=== PATIENT | male | born 1970 | race Caucasian/White ===

== ENCOUNTER 2023-09-08 07:22 | Emergency (ER) | payer MEDICAID ==
[~2023-09-08] VITALS: Ht 180.3 cm; Wt 52.0 kg
[~2023-09-08 07:22] MED LIST: FERR325T6 PO; FURO40TA5 PO; LACT10SO6 PO; MIDO5TAB4 MT; SPIR100T5 PO
[2023-09-08 07:30] VITALS: O2SAT 100
[2023-09-08 08:20] LABS: CLARITY URINE CLEAR (CLEAR); COLOR URINE YELLOW (YELLOW); GLUCOSE URINE NEGATIVE (NEGATIVE); KETONES URINE TRACE (NEGATIVE); LEUKOCYTE ESTERASE URINE 2+ (NEGATIVE); NITRITE URINE NEGATIVE (NEGATIVE); OCCULT BLOOD URINE NEGATIVE (NEGATIVE); PH URINE 5.5 (4.5-8.0); PROTEIN URINE NEGATIVE (NEGATIVE); SPECIFIC GRAVITY URINE 1.024 (1.005-1.030)
[2023-09-08 08:38] LABS: RBC URINE 0-2 /hpf (0-2); SQUAMOUS EPITHELIAL CELL URINE RARE /lpf (RARE/1+)
[2023-09-08 08:40] LABS: BACTERIA URINE 1+; MUCUS URINE 1+ /lpf (NONE/TRACE); YEAST URINE NONE SEEN
[2023-09-08] MEDS ORDERED: FURO-151 MT (12:28)
[2023-09-08] MEDS ORDERED: SPIR100T5 MT (12:28)
[2023-09-08] MEDS: SPIRONOLACTONE 50MG TABLET PO STA (12:51)
[2023-09-08] MEDS: FUROSEMIDE 40MG TABLET PO ONE (12:51)
[2023-09-08 13:04] VITALS: BP 124/73; PULSE 78; RESP 16; TEMP 98.5
[2023-09-15] MEDS ORDERED: FURO40TA5 PO (08:26)
[2023-09-15] MEDS ORDERED: SPIR100T5 PO (08:26)
== END 2023-09-08 13:14 | disposition home or self-care (01) ==
LOC: ER 08:19
DX: R18.8 Other ascites (principal)
CPT/HCPCS: 81003; 99283; 99284

== ENCOUNTER 2023-09-13 00:43 | Inpatient (IN) | payer MEDICAID ==
[2023-09-13] VITALS (7 sets, daily range): BP systolic 74–123; BP diastolic 40–89; PULSE 78–94; RESP 18–22; TEMP 97–98
[~2023-09-13] VITALS: Ht 175.3 cm; Wt 78.5 kg
[~2023-09-13 00:43] MED LIST changes: +FURO-151 MT; +SPIR100T5 MT
[2023-09-13 01:23] LABS: CHLORIDE 107 mEq/L (98-107); POTASSIUM 4.1 mEq/L (3.5-5.1); SODIUM 136 mEq/L (136-145)
[2023-09-13 01:24] LABS: CARBON DIOXIDE 22 mEq/L (21-32)
[2023-09-13 01:28] LABS: HEMATOCRIT. 29.8 % (42.0-52.0); HEMOGLOBIN. 9.4 g/dL (14.0-18.0); MEAN CORPUSCULAR HEMOGLOBIN 28.4 pg (28.0-32.0); MEAN CORPUSCULAR HGB CONC 31.5 g/dL (31.0-37.0); MEAN CORPUSCULAR VOLUME 90.1 fL (80.0-94.0); MEAN PLATELET VOLUME 9.5 fl (7.4-10.4); PLATELET 65 x1000/uL (130-400); RED BLOOD CELL COUNT 3.31 mill/uL (4.7-6.1); RED CELL DISTRIBUTION WIDTH 18.5 % (11.6-14.6); WHITE BLOOD COUNT 2.9 x1000/uL (4.5-11.0)
[2023-09-13 01:29] LABS: CREATININE 0.9 mg/dL (0.6-1.3); GLUCOSE 165 mg/dL (70-105); UREA NITROGEN BLOOD 11 mg/dL (9-23)
[2023-09-13 01:31] LABS: DIFFERENTIAL COMMENT 1
[2023-09-13 01:34] LABS: TROPONIN I HIGH SENSITIVITY < 4 ng/L (3.0-53)
[2023-09-13 01:50] LABS: PLATELET ESTIMATE MARKEDLY DECREASED
[2023-09-13 01:51] LABS: GIANT PLATELETS FEW; OVALOCYTES 1+; TEAR DROP CELLS 1+
[2023-09-13 04:25] LABS: INR 1.1; PROTHROMBIN TIME 12.6 sec (9.6-11.0)
[2023-09-13] MEDS ORDERED: DOCUSATE SODIUM 100MG CAPSULE PO PRN (07:45)
[2023-09-13] MEDS ORDERED: IPRATROPIUM/ALBUTEROL 0.5-3(2.5)MG/3ML NEB HHN PRN (07:45)
[2023-09-13] MEDS ORDERED: CLONIDINE 0.1MG TABLET PO PRN (07:45)
[2023-09-13] MEDS ORDERED: GUAIFENESIN 200MG/10ML SUGAR FREE UDC PO PRN (07:45)
[2023-09-13] MEDS ORDERED: MAGNESIUM/ALUMINUM HYDROXIDE/SIMETHICONE 30ML UDC PO PRN (07:45)
[2023-09-13] MEDS: PANTOPRAZOLE SODIUM 40 MG/VIAL IV SCH (09:57)
[2023-09-13 10:28] LABS: CARBON DIOXIDE 22 mEq/L (21-32); CHLORIDE 108 mEq/L (98-107); POTASSIUM 4.1 mEq/L (3.5-5.1); SODIUM 136 mEq/L (136-145)
[2023-09-13 10:29] LABS: CALCIUM 7.8 mg/dL (8.7-10.4)
[2023-09-13 10:33] LABS: IRON 37 ug/dL (65-175)
[2023-09-13 10:34] LABS: CREATININE 0.7 mg/dL (0.6-1.3); GLUCOSE 94 mg/dL (70-105); UREA NITROGEN BLOOD 9 mg/dL (9-23)
[2023-09-13 10:35] LABS: AMMONIA 33 uMol/L (<32)
[2023-09-13 10:36] LABS: ALANINE AMINOTRANSFERASE 30 IU/L (10-49); ALBUMIN 2.4 g/dL (3.2-4.8); ASPARTATE AMINOTRANSFERASE 46 IU/L (<34); BILIRUBIN DIRECT 0.8 mg/dL (<=3.0); BILIRUBIN TOTAL 1.6 mg/dL (0.1-1.0); PROTEIN TOTAL 6.4 g/dL (6.0-8.3); TOTAL IRON BINDING CAPACITY 308 ug/dl (250-425)
[2023-09-13 12:01] LABS: FERRITIN 29 ng/mL (22-322)
[2023-09-13 12:02] LABS: FOLIC ACID (FOLATE) SERUM 14.79 ng/mL (>5.38); VITAMIN B12 SERUM 920 pg/mL (211-911)
[2023-09-13 12:12] LABS: HEPATITIS B SURFACE ANTIGEN NEGATIVE (Negative)
[2023-09-13 12:33] LABS: HEPATITIS A AB IGM NEGATIVE (Negative); HEPATITIS B CORE AB IGM NEGATIVE (Negative)
[2023-09-13 12:34] LABS: HEPATITIS C AB REACTIVE (Pos) (Negative)
[2023-09-13] MEDS: ONDANSETRON HCL 4MG/2ML INJ IV PRN (23:01)
[2023-09-14] VITALS (12 sets, daily range): BP systolic 96–126; BP diastolic 71–94; PULSE 74–93; RESP 18–25; TEMP 96.9–98.4
[2023-09-14] LABS: BG BASE EXCESS -3.2 mmol/L (-2.0-2.0); BG CARBOXYHEMOGLOBIN 0.2 % (0.5-1.5); BG DEOXYHEMOGLOBIN 0.2 % (0.0-5.0); BG FRACTION INSPIRED OXYGEN 100; BG HCO3 ACT 20.2 mmol/L (22.0-26.0); BG METHEMOGLOBIN 0.6 % (0.0-1.5); BG OXYGEN SATURATION 99.8 % (92.0-98.5); BG PCO2 30.4 mmHg (35.0-45.0); BG PH 7.441 (7.350-7.450); BG PO2 441.6 mmHg (75.0-100.0); BG SAMPLE SITE LEFT RADIAL; BG TOTAL HEMOGLOBIN 9.5 g/dL (12.0-18.0); BG VENT MODE MASK - NRB
[2023-09-14 05:00] LABS: CHLORIDE 109 mEq/L (98-107); POTASSIUM 4.2 mEq/L (3.5-5.1); SODIUM 134 mEq/L (136-145)
[2023-09-14 05:01] LABS: CALCIUM 7.7 mg/dL (8.7-10.4); CARBON DIOXIDE 20 mEq/L (21-32)
[2023-09-14 05:06] LABS: CREATININE 0.7 mg/dL (0.6-1.3); GLUCOSE 90 mg/dL (70-105); TRIGLYCERIDE 42 mg/dL (0-150); UREA NITROGEN BLOOD 10 mg/dL (9-23)
[2023-09-14 05:07] LABS: AMMONIA 53 uMol/L (<32); LDL CHOLESTEROL 41 mg/dL (5-100)
[2023-09-14 05:08] LABS: ALBUMIN 2.2 g/dL (3.2-4.8); CHOLESTEROL 82 mg/dL (<200); HDL CHOLESTEROL 31 mg/dL (>55)
[2023-09-14 05:11] LABS: T4 FREE 0.97 ng/dL (0.89-1.76); THYROID STIMULATING HORMONE 6.54 uIU/mL (0.55-4.78)
[2023-09-14 05:45] LABS: BASOPHILS % 0.7 % (0.0-2.0); EOSINOPHILS % 3.8 % (0.0-5.0); HEMATOCRIT 27.9 % (42.0-52.0); HEMATOCRIT. 27.9 % (42.0-52.0); HEMOGLOBIN 8.7 g/dL (14.0-18.0); HEMOGLOBIN. 8.7 g/dL (14.0-18.0); LYMPHOCYTES % 14.8 % (20.0-50.0); MEAN CORPUSCULAR HEMOGLOBIN 27.9 pg (28.0-32.0); MEAN CORPUSCULAR HGB CONC 31.2 g/dL (31.0-37.0); MEAN CORPUSCULAR VOLUME 89.4 fL (80.0-94.0); MEAN PLATELET VOLUME 9.8 fl (7.4-10.4); MONOCYTES % 14.9 % (2.0-8.0); NEUTROPHILS % 65.8 % (40.0-76.0); PLATELET 57 x1000/uL (130-400); RED BLOOD CELL COUNT 3.12 mill/uL (4.7-6.1); RED CELL DISTRIBUTION WIDTH 18.5 % (11.6-14.6); WHITE BLOOD COUNT 2.2 x1000/uL (4.5-11.0)
[2023-09-14 05:49] LABS: INR 1.2; PROTHROMBIN TIME 13.4 sec (9.6-11.0)
[2023-09-14] MEDS: ALBUMIN HUMAN 25GM/100ML (25%) IV PRN (08:12)
[2023-09-14] MEDS: RIFAXIMIN 550 MG TABLET PO SCH (09:43)
[2023-09-14] MEDS: LACTULOSE 20G/30ML UDC PO SCH (14:05)
[2023-09-14 15:34] LABS: BODY FLUID MONOCYTES 2 %
[2023-09-14 15:35] LABS: BODY FLUID RBC 211 /cu mm (0-2000); BODY FLUID WBC 140 /cu mm (0-200)
[2023-09-14] MEDS: ALBUMIN HUMAN 25GM/100ML (25%) IV NR (20:29)
[2023-09-15] VITALS (7 sets, daily range): BP systolic 104–120; BP diastolic 79–89; PULSE 74–91; RESP 18–24; TEMP 97.2–97.7; O2SAT 100
[2023-09-15 06:19] LABS: AMMONIA 31 uMol/L (<32)
[2023-09-15 06:32] LABS: HEMATOCRIT 26.8 % (42.0-52.0); HEMOGLOBIN 8.5 g/dL (14.0-18.0); MEAN CORPUSCULAR HEMOGLOBIN 28.4 pg (28.0-32.0); MEAN CORPUSCULAR HGB CONC 31.8 g/dL (31.0-37.0); MEAN CORPUSCULAR VOLUME 89.2 fL (80.0-94.0); PLATELET 51 x1000/uL (130-400); RED BLOOD CELL COUNT 3.01 mill/uL (4.7-6.1); RED CELL DISTRIBUTION WIDTH 18.2 % (11.6-14.6)
[2023-09-15 06:40] LABS: WHITE BLOOD COUNT 1.7 x1000/uL (4.5-11.0)
[2023-09-15 06:51] LABS: CHLORIDE 110 mEq/L (98-107); POTASSIUM 3.8 mEq/L (3.5-5.1); SODIUM 138 mEq/L (136-145)
[2023-09-15 06:52] LABS: CALCIUM 7.9 mg/dL (8.7-10.4); CARBON DIOXIDE 21 mEq/L (21-32)
[2023-09-15 06:57] LABS: CREATININE 0.8 mg/dL (0.6-1.3); GLUCOSE 83 mg/dL (70-105); UREA NITROGEN BLOOD 8 mg/dL (9-23)
[2023-09-15 07:00] LABS: PHOSPHORUS 3.9 mg/dL (2.5-4.9)
[2023-09-15] MEDS ORDERED: SPIR100T5 PO (08:26)
[2023-09-15] MEDS ORDERED: FURO40TA5 PO (08:26)
== END 2023-09-15 17:45 | disposition home or self-care (01) ==
LOC: ER 00:43 → 6WST 04:21 → ER 05:57 → 6WST 07:04 → 5EST 23:55
PROVIDERS: ADMIT Internal Medicine; ATTEND Internal Medicine
PROC: 0W9G3ZZ Drainage of Peritoneal Cavity, Percutaneous Approach (ICD-10-PCS; principal; 2023-09-14)
DX: K74.60 Unspecified cirrhosis of liver (principal); K72.90 Hepatic failure, unspecified without coma; D72.10 Eosinophilia, unspecified; R18.8 Other ascites; E88.09 Other disorders of plasma-protein metabolism, not elsewhere classified; B19.20 Unspecified viral hepatitis C without hepatic coma; D69.59 Other secondary thrombocytopenia; D64.89 Other specified anemias; D72.819 Decreased white blood cell count, unspecified; F10.21 Alcohol dependence, in remission; Z79.899 Other long term (current) drug therapy; Z91.199 Patient's noncompliance with other medical treatment and regimen due to unspecified reason
CPT/HCPCS: 36415; 36600; 49083; 71045; 76705; 80048; 80053; 80061; 82040; 82140; 82248; 82270; 82375; 82607; 82728; 82746; 82805; 82962; 83540; 83550; 83615; 83735; 84100; 84439; 84443; 84484; 85025; 85027; 86705; 86709; 87340; 93005; 93970; 99285; C9113; J2405; P9047

== ENCOUNTER 2024-09-11 13:47 | Inpatient (IN) | payer MEDICAID ==
[~2024-09-11] VITALS: Ht 175.3 cm; Wt 60.8 kg
[~2024-09-11 13:47] MED LIST changes: -FURO-151 MT; +LACT-394 PO; -LACT10SO6 PO; -SPIR100T5 MT
[2024-09-11] MEDS: SODIUM CHLORIDE 0.9% 1,000 ML IV ONE ×2 (14:35→20:15)
[2024-09-11 14:43] LABS: HEMOGLOBIN. 11.8 g/dL (14.0-18.0); MEAN CORPUSCULAR HEMOGLOBIN 33.6 pg (28.0-32.0); MEAN CORPUSCULAR HGB CONC 34.7 g/dL (31.0-37.0); MEAN CORPUSCULAR VOLUME 96.9 fL (80.0-94.0); RED BLOOD CELL COUNT 3.51 mill/uL (4.7-6.1); RED CELL DISTRIBUTION WIDTH 15.6 % (11.6-14.6); WHITE BLOOD COUNT 2.2 x1000/uL (4.5-11.0)
[2024-09-11 14:45] LABS: CHLORIDE 102 mEq/L (98-107); POTASSIUM 4.6 mEq/L (3.5-5.1); SODIUM 134 mEq/L (136-145)
[2024-09-11 14:46] LABS: CARBON DIOXIDE 21 mEq/L (21-32)
[2024-09-11 14:47] LABS: CALCIUM 9.1 mg/dL (8.7-10.4); INR 1.2; PROTHROMBIN TIME 12.9 sec (9.6-11.0)
[2024-09-11 14:51] LABS: GLUCOSE 136 mg/dL (70-105)
[2024-09-11 14:52] LABS: UREA NITROGEN BLOOD 36 mg/dL (9-23)
[2024-09-11 14:53] LABS: ALANINE AMINOTRANSFERASE 72 IU/L (10-49); ALBUMIN 3.5 g/dL (3.2-4.8); ASPARTATE AMINOTRANSFERASE 78 IU/L (<34); BILIRUBIN DIRECT 0.8 mg/dL (<=3.0)
[2024-09-11 14:54] LABS: BILIRUBIN TOTAL 1.9 mg/dL (0.1-1.0); PROTEIN TOTAL 7.4 g/dL (6.0-8.3)
[2024-09-11 14:56] LABS: CREATININE 2.5 mg/dL (0.6-1.3)
[2024-09-11 14:58] LABS: DIFFERENTIAL COMMENT 1; PLATELET 45 x1000/uL (130-400)
[2024-09-11] MEDS: SODIUM CHLORIDE 0.9% (SEPSIS BOLUS) IV ONE (15:04)
[2024-09-11] MEDS: PIPERACILLIN/TAZO 3.375G/50ML 50 ML IV ONE (15:26)
[2024-09-11 15:27] LABS: PLATELET ESTIMATE MARKEDLY DECREASED
[2024-09-11 16:07] LABS: ETHANOL BLOOD < 10 mg/dL (<10)
[2024-09-11 16:12] LABS: TROPONIN I HIGH SENSITIVITY < 4 ng/L (3.0-53)
[2024-09-11 16:22] LABS: AMMONIA 43 uMol/L (<32)
[2024-09-11 16:26] LABS: INR 2.3; PARTIAL THROMBOPLASTIN TIME 63.8 sec (23.4-31.0); PROTHROMBIN TIME 22.8 sec (9.6-11.0)
[2024-09-11] MEDS: VANCOMYCIN 1G PREMIX 200 ML IV ONE (16:34)
[2024-09-11] MEDS ORDERED: DOCUSATE SODIUM 100MG CAPSULE PO PRN (17:15)
[2024-09-11] MEDS ORDERED: CLONIDINE 0.1MG TABLET PO PRN (17:15)
[2024-09-11] MEDS ORDERED: GUAIFENESIN 200MG/10ML SUGAR FREE UDC PO PRN (17:15)
[2024-09-11] MEDS ORDERED: ACETAMINOPHEN 325MG TABLET PO PRN (17:15)
[2024-09-11] MEDS ORDERED: MAGNESIUM/ALUMINUM HYDROXIDE/SIMETHICONE 30ML UDC PO PRN (17:15)
[2024-09-11] MEDS ORDERED: ONDANSETRON HCL 4MG/2ML INJ IV PRN (17:15)
[2024-09-11] MEDS ORDERED: IPRATROPIUM/ALBUTEROL 0.5-3(2.5)MG/3ML NEB HHN PRN (17:34)
[2024-09-11 18:36] LABS: IRON 31 ug/dL (65-175)
[2024-09-11 18:38] LABS: LACTATE DEHYDROGENASE 58 IU/L (120-246)
[2024-09-11 18:39] LABS: PHOSPHORUS 1.3 mg/dL (2.5-4.9); TOTAL IRON BINDING CAPACITY 197 ug/dl (250-425)
[2024-09-11 18:42] LABS: FERRITIN 160 ng/mL (22-322); FOLIC ACID (FOLATE) SERUM > 20.00 ng/mL (>5.38)
[2024-09-11 18:43] LABS: VITAMIN B12 SERUM 983 pg/mL (211-911)
[2024-09-11] MEDS ORDERED: POTASSIUM PHOSPHATE 30 MMOL in DEXT 5% WATER 490 ML IV ONE (19:30)
[2024-09-11 20:00] VITALS: BP 93/73; PULSE 70; RESP 18; TEMP 36.1; O2SAT 100
[2024-09-11] MEDS: TRAMADOL 50MG TABLET PO SCH (20:07)
[2024-09-11 20:08] LABS: BG BASE EXCESS -2.9 mmol/L (-2.0-3.0); BG CARBOXYHEMOGLOBIN 0.3 % (0.5-1.5); BG DEOXYHEMOGLOBIN 1.7 % (0.0-5.0); BG FRACTION INSPIRED OXYGEN 21; BG HCO3 ACT 18.1 mmol/L (21.0-28.0); BG METHEMOGLOBIN 0.3 % (0.5-1.5); BG OXYGEN SATURATION 98.3 % (94.0-98.0); BG OXYHEMOGLOBIN 97.7 % (94.0-98.0); BG PH 7.534 (7.350-7.450); BG PO2 109.6 mmHg (83.0-108.0); BG SAMPLE SITE RIGHT RADIAL; BG TOTAL HEMOGLOBIN 11.6 g/dL (13.5-17.5); BG VENT MODE ROOM AIR
[2024-09-11] MEDS: MIDODRINE HCL 5MG TABLET PO SCH (20:08)
[2024-09-11] MEDS: LACTULOSE 20G/30ML UDC PO SCH (20:08)
[2024-09-11] MEDS: PANTOPRAZOLE SODIUM 40 MG/VIAL IV SCH (20:15)
[2024-09-11] MEDS: MAGNESIUM 4 G PREMIX 100 ML IV SCH (21:12)
[2024-09-11 21:58] LABS: CLARITY URINE CLEAR (CLEAR); COLOR URINE YELLOW (YELLOW); GLUCOSE URINE NEGATIVE (NEGATIVE); KETONES URINE NEGATIVE (NEGATIVE); LEUKOCYTE ESTERASE URINE NEGATIVE (NEGATIVE); NITRITE URINE NEGATIVE (NEGATIVE); OCCULT BLOOD URINE NEGATIVE (NEGATIVE); PH URINE 6.5 (4.5-8.0); PROTEIN URINE NEGATIVE (NEGATIVE); SPECIFIC GRAVITY URINE 1.017 (1.005-1.030); UROBILINOGEN URINE 0.2 E.U./dL (0.2-1.0)
[2024-09-11 22:21] LABS: *AMPHETAMINES SCREEN URINE NEGATIVE (NEGATIVE); *BARBITURATES SCREEN URINE NEGATIVE (NEGATIVE); *BENZODIAZEPINES SCREEN URINE NEGATIVE (NEGATIVE); *COCAINE SCREEN URINE NEGATIVE (NEGATIVE); CANNABINOID URINE SCREEN NEGATIVE (NEGATIVE); ECSTASY MDMA SCREEN URINE NEGATIVE (NEGATIVE); METHADONE URINE SCREEN NEGATIVE (NEGATIVE); OPIATES URINE SCREEN NEGATIVE (NEGATIVE); PHENCYCLIDINE URINE SCREEN NEGATIVE (NEGATIVE)
[2024-09-11] MEDS: PIPERACILLIN/TAZO 3.375G/50ML 50 ML IV SCH (22:43)
[2024-09-11 23:22] LABS: CREATINE KINASE 64 IU/L (46-171)
[2024-09-11 23:25] LABS: TROPONIN I HIGH SENSITIVITY < 4 ng/L (3.0-53)
[2024-09-12] VITALS: BP 109/80; PULSE 71; RESP 18; TEMP 36.1; O2SAT 100
[2024-09-12] MEDS: SODIUM PHOSPHATE 30 MMOL in DEXT 5% WATER 490 ML IV SCH (01:30)
[2024-09-12 04:00] VITALS: BP 102/75; PULSE 75; RESP 18; TEMP 36.7; O2SAT 100
[2024-09-12 05:59] LABS: BASOPHILS % 0.5 % (0.0-2.0); EOSINOPHILS % 3.2 % (0.0-5.0); HEMATOCRIT. 34.3 % (42.0-52.0); HEMOGLOBIN. 11.7 g/dL (14.0-18.0); LYMPHOCYTES % 7.7 % (20.0-50.0); MEAN CORPUSCULAR HEMOGLOBIN 33.2 pg (28.0-32.0); MEAN CORPUSCULAR HGB CONC 34.2 g/dL (31.0-37.0); MEAN PLATELET VOLUME 9.6 fl (7.4-10.4); MONOCYTES % 11.6 % (2.0-8.0); RED BLOOD CELL COUNT 3.54 mill/uL (4.7-6.1); RED CELL DISTRIBUTION WIDTH 15.2 % (11.6-14.6); WHITE BLOOD COUNT 2.2 x1000/uL (4.5-11.0)
[2024-09-12 06:08] LABS: POTASSIUM 4.2 mEq/L (3.5-5.1)
[2024-09-12 06:09] LABS: CALCIUM 9.1 mg/dL (8.7-10.4)
[2024-09-12 06:14] LABS: CREATININE 2.2 mg/dL (0.6-1.3)
[2024-09-12 06:15] LABS: CREATINE KINASE 62 IU/L (46-171)
[2024-09-12 06:18] LABS: T4 FREE 1.26 ng/dL (0.89-1.76); THYROID STIMULATING HORMONE 3.33 uIU/mL (0.55-4.78)
[2024-09-12 06:28] LABS: TROPONIN I HIGH SENSITIVITY < 4 ng/L (3.0-53)
[2024-09-12 06:44] LABS: DIFFERENTIAL COMMENT 1; PLATELET 40 x1000/uL (130-400)
[2024-09-12 08:00] VITALS: BP 110/77; PULSE 68; RESP 18; TEMP 36.5; O2SAT 99
[2024-09-12] MEDS ORDERED: NON FORMULARY MED XX SCH (08:00)
[2024-09-12 08:57] LABS: PHOSPHORUS 5.1 mg/dL (2.5-4.9)
[2024-09-12] MEDS: FOLIC ACID 1MG TABLET PO SCH (09:08)
[2024-09-12] MEDS: PIPERACILLIN/TAZO 3.375G/50ML IV SCH (09:32)
[2024-09-12] MEDS: IRON SUCROSE COMPLEX 100 MG/5 ML ML IV SCH (09:32)
[2024-09-12] MEDS ORDERED: VANCOMYCIN 500MG PREMIX 100 ML IV SCH (10:00)
[2024-09-12] MEDS ORDERED: LIDOCAINE HCL 1% 10 MG/ML 10ML VIAL ONE (10:36)
[2024-09-12] MEDS ORDERED: SODIUM BICARBONATE 4.2% 2.5MEQ/5ML VIAL IV ONE (10:36)
[2024-09-12] MEDS ORDERED: MORPHINE SULFATE 4 MG/ML INJ (FOR IV/IM USE) IV PRN (12:15)
[2024-09-12] MEDS ORDERED: NALOXONE HCL 0.4MG/ML VIAL IV PRN (12:30)
[2024-09-12] MEDS: PHYTONADIONE 10MG/ML INJ SUBCUT SCH (14:35)
[2024-09-12 16:24] LABS: PROTEIN BODY FLUID 2.4 gm/dL
[2024-09-12 16:37] LABS: ALANINE AMINOTRANSFERASE 66 IU/L (10-49); ASPARTATE AMINOTRANSFERASE 69 IU/L (<34); BILIRUBIN TOTAL 2.2 mg/dL (0.1-1.0); PROTEIN TOTAL 6.5 g/dL (6.0-8.3)
[2024-09-12 16:38] LABS: AMMONIA 58 uMol/L (<32)
[2024-09-12] MEDS: METRONIDAZOLE 500 MG PREMIX 100 ML IV SCH (17:13)
[2024-09-12] MEDS: ALBUMIN HUMAN 25GM/100ML (25%) IV SCH (17:35)
[2024-09-12] MEDS: CEFEPIME 2GM/100ML 100 ML IV SCH (17:36)
[2024-09-12 18:00] VITALS: BP 114/80; PULSE 67; RESP 18; TEMP 36.5; O2SAT 99
[2024-09-12] MEDS: VANCOMYCIN 750MG PMX (XELLIA) 150 ML IV SCH (18:43)
[2024-09-12 18:44] LABS: SODIUM URINE RANDOM 53 mEq/L
[2024-09-12 19:06] LABS: OSMOLALITY URINE 640 mOsm/kg (500-850)
[2024-09-12 20:00] VITALS: BP 86/55; PULSE 65; RESP 18; TEMP 36.4; O2SAT 100
[2024-09-12 23:22] LABS: BODY FLUID MONOCYTES 13 %; BODY FLUID RBC 73 /cu mm (0-2000); BODY FLUID WBC 54 /cu mm (0-200)
[2024-09-13] VITALS: BP 97/63; PULSE 61; RESP 19; TEMP 36.3; O2SAT 95
[2024-09-13 04:00] VITALS: BP 88/54; PULSE 60; RESP 20; TEMP 36.2; O2SAT 94
[2024-09-13] MEDS ORDERED: DIATR MEGLU/DIATRIZOATE SOLN 30ML PO SCH (05:30)
[2024-09-13 08:00] VITALS: BP 103/64; PULSE 56; RESP 18; TEMP 36.7; O2SAT 97
[2024-09-13 10:00] LABS: BASOPHILS % 0.8 % (0.0-2.0); EOSINOPHILS % 2.6 % (0.0-5.0); HEMOGLOBIN. 12.4 g/dL (14.0-18.0); INR 1.3; LYMPHOCYTES % 7.4 % (20.0-50.0); MEAN CORPUSCULAR HGB CONC 33.4 g/dL (31.0-37.0); MEAN PLATELET VOLUME 9.5 fl (7.4-10.4); MONOCYTES % 13.1 % (2.0-8.0); NEUTROPHILS % 76.1 % (40.0-76.0); PROTHROMBIN TIME 13.2 sec (9.6-11.0); RED BLOOD CELL COUNT 3.74 mill/uL (4.7-6.1); RED CELL DISTRIBUTION WIDTH 15.4 % (11.6-14.6); WHITE BLOOD COUNT 3.7 x1000/uL (4.5-11.0)
[2024-09-13 10:06] LABS: POTASSIUM 4.4 mEq/L (3.5-5.1)
[2024-09-13 10:11] LABS: DIFFERENTIAL COMMENT 1
[2024-09-13] MEDS: DIATR MEGLU/DIATRIZOATE SOLN 30ML PO SCH (11:13)
[2024-09-13 11:16] LABS: PLATELET 41 x1000/uL (130-400)
[2024-09-13 12:00] VITALS: BP 98/65; PULSE 55; RESP 18; TEMP 36.6; O2SAT 100
[2024-09-13] MEDS: CITRIC ACID/SODIUM CITRATE SOLN 30ML UDC PO SCH (13:00)
[2024-09-13 14:09] LABS: HEMATOCRIT 35.4 % (42.0-52.0); HEMOGLOBIN 12.3 g/dL (14.0-18.0); MEAN CORPUSCULAR HEMOGLOBIN 33.5 pg (28.0-32.0); MEAN CORPUSCULAR HGB CONC 34.8 g/dL (31.0-37.0); MEAN CORPUSCULAR VOLUME 96.2 fL (80.0-94.0); RED BLOOD CELL COUNT 3.68 mill/uL (4.7-6.1); RED CELL DISTRIBUTION WIDTH 14.8 % (11.6-14.6); WHITE BLOOD COUNT 2.9 x1000/uL (4.5-11.0)
[2024-09-13 14:12] LABS: PLATELET 39 x1000/uL (130-400)
[2024-09-13 14:18] LABS: POTASSIUM 3.7 mEq/L (3.5-5.1)
[2024-09-13 14:19] LABS: CALCIUM 9.5 mg/dL (8.7-10.4)
[2024-09-13 14:24] LABS: CREATININE 2.1 mg/dL (0.6-1.3)
[2024-09-13 14:27] LABS: ALANINE AMINOTRANSFERASE 68 IU/L (10-49); ALBUMIN 3.8 g/dL (3.2-4.8); ASPARTATE AMINOTRANSFERASE 72 IU/L (<34); BILIRUBIN DIRECT 1.2 mg/dL (<=3.0); BILIRUBIN TOTAL 2.3 mg/dL (0.1-1.0); PROTEIN TOTAL 7.4 g/dL (6.0-8.3)
[2024-09-13 14:28] LABS: AMMONIA 26 uMol/L (<32)
[2024-09-13 14:44] LABS: HEPATITIS B SURFACE ANTIGEN NEGATIVE (Negative)
[2024-09-13 15:00] LABS: HEPATITIS A AB IGM NEGATIVE (Negative)
[2024-09-13 15:01] LABS: HEPATITIS B CORE AB IGM NEGATIVE (Negative)
[2024-09-13 15:33] LABS: HEPATITIS C AB REACTIVE (Pos) (Negative)
[2024-09-13 16:00] VITALS: BP 105/68; PULSE 60; RESP 18; TEMP 36.6; O2SAT 100
[2024-09-13 17:37] VITALS: BP 105/68; PULSE 60; TEMP 97.9; O2SAT 98
== END 2024-09-13 18:15 | disposition home or self-care (01) | DRG 720 ==
LOC: ER 13:47 → EDBEDREQ 15:01 → EDBEDREQSVC 16:29 → EDBEDREQ 16:29 → 8WST 17:21
PROVIDERS: ADMIT Hospitalist; ATTEND Hospitalist
PROC: 0W9G3ZZ Drainage of Peritoneal Cavity, Percutaneous Approach (ICD-10-PCS; principal; 2024-09-12)
DX: A41.9 Sepsis, unspecified organism (principal); N17.0 Acute kidney failure with tubular necrosis; K76.7 Hepatorenal syndrome; I81 Portal vein thrombosis; G93.40 Encephalopathy, unspecified; D61.818 Other pancytopenia; R18.8 Other ascites; J18.9 Pneumonia, unspecified organism; Z20.822 Contact with and (suspected) exposure to COVID-19; D68.9 Coagulation defect, unspecified; D63.8 Anemia in other chronic diseases classified elsewhere; E87.1 Hypo-osmolality and hyponatremia; E83.39 Other disorders of phosphorus metabolism; N18.9 Chronic kidney disease, unspecified; B19.20 Unspecified viral hepatitis C without hepatic coma; D50.9 Iron deficiency anemia, unspecified; M13.88 Other specified arthritis, other site; Y90.9 Presence of alcohol in blood, level not specified; E80.6 Other disorders of bilirubin metabolism; F10.21 Alcohol dependence, in remission; K74.60 Unspecified cirrhosis of liver; K82.8 Other specified diseases of gallbladder; Z55.6 Problems related to health literacy; Z85.05 Personal history of malignant neoplasm of liver; Z86.73 Personal history of transient ischemic attack (TIA), and cerebral infarction without residual deficits; Z92.21 Personal history of antineoplastic chemotherapy; Z92.3 Personal history of irradiation
CPT/HCPCS: 36415; 36600; 49083; 71045; 74177; 76705; 76770; 80048; 80061; 80076; 80202; 80305; 80320; 81003; 82040; 82105; 82140; 82270; 82375; 82550; 82607; 82728; 82746; 82805; 83540; 83550; 83605; 83615; 83735; 83880; 83930; 83935; 83986; 84100; 84145; 84300; 84439; 84443; 84484; 85025; 85027; 85044; 86705; 86709; 86850; 86900; 87340; 87426; 93005; 93970; 94640; 96361; 96365; 96367; 97162; 97166; 97530; 97535; 99291; J0692; J2003; J2470; J2543; J3370; J3430; J3475; J3490; J7030; J7060; P9047; Q9963; G0480

== ENCOUNTER 2024-10-19 19:36 | Inpatient (IN) | payer MEDICAID ==
[~2024-10-19] VITALS: Ht 170.2 cm; Wt 54.2 kg
[~2024-10-19 19:36] MED LIST changes: -SPIR100T5 PO
[2024-10-19] MEDS ORDERED: MORPHINE SULFATE 4 MG/ML INJ (FOR IV/IM USE) IV ONE (20:00)
[2024-10-19] MEDS ORDERED: ONDANSETRON HCL 4MG/2ML INJ IV ONE (20:00)
[2024-10-19 20:12] LABS: HEMATOCRIT. 36.4 % (42.0-52.0); HEMOGLOBIN. 12.6 g/dL (14.0-18.0); MEAN PLATELET VOLUME 7.9 fl (7.4-10.4); PLATELET 97 x1000/uL (130-400); RED BLOOD CELL COUNT 3.80 mill/uL (4.7-6.1); RED CELL DISTRIBUTION WIDTH 15.0 % (11.6-14.6)
[2024-10-19 20:21] LABS: INR 1.1
[2024-10-19 20:27] LABS: LYMPHOCYTES % MANUAL 6.0 % (20.0-50.0); MONOCYTES % MANUAL 9.0 % (2.0-8.0); NEUTROPHILS % MANUAL 85.0 % (45.0-75.0); PLATELET ESTIMATE SLIGHTLY DECREASED
[2024-10-19 20:36] LABS: CREATININE 1.5 mg/dL (0.6-1.3); UREA NITROGEN BLOOD 47 mg/dL (9-23)
[2024-10-19 20:38] LABS: TROPONIN I HIGH SENSITIVITY < 4 ng/L (3.0-53)
[2024-10-19 21:25] LABS: ASPARTATE AMINOTRANSFERASE 102 IU/L (<34)
[2024-10-19 21:26] LABS: BILIRUBIN DIRECT 0.7 mg/dL (<=3.0); BILIRUBIN TOTAL 1.2 mg/dL (0.1-1.0); PROTEIN TOTAL 6.7 g/dL (6.0-8.3)
[2024-10-19] MEDS: MORPHINE SULFATE 4 MG/ML INJ (FOR IV/IM USE) IV NR (22:13)
[2024-10-19] MEDS: ONDANSETRON HCL 4MG/2ML INJ IV NR (22:13)
[2024-10-19] MEDS ORDERED: GUAIFENESIN 200MG/10ML SUGAR FREE UDC PO PRN (23:45)
[2024-10-19] MEDS ORDERED: ONDANSETRON HCL 4MG/2ML INJ IV PRN (23:45)
[2024-10-20] VITALS: BP 102/78; PULSE 79; RESP 20; TEMP 36.4; O2SAT 100
[2024-10-20 00:47] VITALS: BP 102/78; PULSE 79; RESP 20; TEMP 36.418
[2024-10-20 02:41] LABS: FOLIC ACID (FOLATE) SERUM 17.16 ng/mL (>5.38); VITAMIN B12 SERUM 1208 pg/mL (211-911)
[2024-10-20 04:00] VITALS: BP 96/69; PULSE 80; RESP 19; TEMP 36.5; O2SAT 99
[2024-10-20] MEDS ORDERED: CEFEPIME 1GM IN DEXT 5% 50ML IV SCH (05:15)
[2024-10-20] MEDS: CEFEPIME 2,000MG in DEXT 5% WATER 100ML IV SCH (05:56)
[2024-10-20 07:57] LABS: CLARITY URINE CLOUDY (CLEAR); COLOR URINE DARK YELLOW (YELLOW); GLUCOSE URINE NEGATIVE (NEGATIVE); KETONES URINE TRACE (NEGATIVE); LEUKOCYTE ESTERASE URINE 2+ (NEGATIVE); NITRITE URINE NEGATIVE (NEGATIVE); OCCULT BLOOD URINE TRACE (NEGATIVE); PH URINE 5.5 (4.5-8.0); PROTEIN URINE NEGATIVE (NEGATIVE); SPECIFIC GRAVITY URINE 1.019 (1.005-1.030); UROBILINOGEN URINE 1.0 E.U./dL (0.2-1.0)
[2024-10-20 08:00] VITALS: BP 91/61; PULSE 72; RESP 16; TEMP 36.3; O2SAT 99
[2024-10-20 08:57] LABS: HEMATOCRIT. 35.9 % (42.0-52.0); HEMOGLOBIN. 12.3 g/dL (14.0-18.0); MEAN PLATELET VOLUME 8.8 fl (7.4-10.4); PLATELET 84 x1000/uL (130-400); RED BLOOD CELL COUNT 3.74 mill/uL (4.7-6.1); RED CELL DISTRIBUTION WIDTH 15.1 % (11.6-14.6)
[2024-10-20 09:06] LABS: SQUAMOUS EPITHELIAL CELL URINE 1+ /lpf (RARE/1+); WBC URINE 15-25 /hpf (0-2)
[2024-10-20 09:07] LABS: BACTERIA URINE 3+; RBC URINE 0-2 /hpf (0-2); YEAST URINE NONE SEEN
[2024-10-20 09:19] LABS: TRIGLYCERIDE 62.0 mg/dL (0-150)
[2024-10-20 09:20] LABS: LDL CHOLESTEROL 77.0 mg/dL (5-100); T4 FREE 1.18 ng/dL (0.89-1.76)
[2024-10-20] MEDS ORDERED: LIDOCAINE HCL 1% 10 MG/ML 10ML VIAL ONE (10:41)
[2024-10-20 11:37] LABS: LACTATE DEHYDROGENASE 238.0 IU/L (120-246)
[2024-10-20 11:38] LABS: PROTEIN TOTAL 6.8 g/dL (6.0-8.3)
[2024-10-20 14:15] LABS: PROTEIN BODY FLUID < 2.0 gm/dL
[2024-10-20 14:36] LABS: BODY FLUID RBC 38 /cu mm (0-2000); BODY FLUID WBC 58 /cu mm (0-200)
[2024-10-20 14:55] LABS: BODY FLUID MONOCYTES 2 %
[2024-10-20] MEDS: PANTOPRAZOLE SODIUM 40 MG/VIAL IV SCH (15:15)
[2024-10-20] MEDS: METRONIDAZOLE 500MG TABLET PO SCH (15:15)
[2024-10-20 16:00] VITALS: BP 90/50; PULSE 62; RESP 16; TEMP 36; O2SAT 100
[2024-10-20 17:15] LABS: EOSINOPHILS % MANUAL 2.0 % (0.0-5.0); MONOCYTES % MANUAL 12.0 % (2.0-8.0); NEUTROPHILS % MANUAL 86.0 % (45.0-75.0); PLATELET ESTIMATE DECREASED
[2024-10-20 17:35] LABS: LYMPHOCYTES % MANUAL 0.0 % (20.0-50.0)
[2024-10-20 20:00] VITALS: BP 82/57; PULSE 19; RESP 19; TEMP 36.5; O2SAT 98
[2024-10-20] MEDS: ALBUMIN HUMAN 25GM/100ML (25%) IV SCH (22:03)
[2024-10-20] MEDS: MIDODRINE HCL 5MG TABLET PO SCH (22:04)
[2024-10-21] VITALS: BP 97/66; PULSE 68; RESP 19; TEMP 36.3; O2SAT 98
[2024-10-21 04:00] VITALS: BP 89/53; PULSE 68; RESP 18; TEMP 36.5; O2SAT 98
[2024-10-21 06:55] LABS: CREATININE 1.3 mg/dL (0.6-1.3); UREA NITROGEN BLOOD 35 mg/dL (9-23)
[2024-10-21 06:57] LABS: ASPARTATE AMINOTRANSFERASE 67 IU/L (<34); BILIRUBIN TOTAL 1.6 mg/dL (0.1-1.0); PROTEIN TOTAL 5.6 g/dL (6.0-8.3)
[2024-10-21 07:03] LABS: HEMATOCRIT. 31.7 % (42.0-52.0); HEMOGLOBIN. 11.1 g/dL (14.0-18.0); MEAN PLATELET VOLUME 8.4 fl (7.4-10.4); PLATELET 59 x1000/uL (130-400); RED BLOOD CELL COUNT 3.32 mill/uL (4.7-6.1); RED CELL DISTRIBUTION WIDTH 15.0 % (11.6-14.6)
[2024-10-21 08:00] VITALS: BP 92/56; PULSE 60; RESP 17; TEMP 36.3; O2SAT 100
[2024-10-21 12:00] VITALS: BP 91/60; PULSE 51; RESP 16; TEMP 36.1; O2SAT 100
[2024-10-21] MEDS ORDERED: CEFEPIME 1GM IN DEXT 5% 50ML IV SCH (12:30)
[2024-10-21 12:41] LABS: BAND% 4.0 % (1.0-6.0); EOSINOPHILS % MANUAL 2.0 % (0.0-5.0); LYMPHOCYTES % MANUAL 13.0 % (20.0-50.0); MONOCYTES % MANUAL 18.0 % (2.0-8.0); NEUTROPHILS % MANUAL 63.0 % (45.0-75.0)
[2024-10-21 12:43] LABS: PLATELET ESTIMATE DECREASED
[2024-10-21] MEDS: CEFEPIME 1GM/50ML 50 ML IV SCH (14:38)
[2024-10-21] MEDS ORDERED: LACTULOSE 20G/30ML UDC PO PRN (15:45)
[2024-10-21 16:00] VITALS: BP 95/59; PULSE 69; RESP 16; TEMP 36.2; O2SAT 100
[2024-10-21 20:00] VITALS: BP 91/63; PULSE 69; RESP 19; TEMP 36.6; O2SAT 100
[2024-10-21] MEDS: ACETAMINOPHEN 325MG TABLET PO PRN (22:16)
[2024-10-21] MEDS: MIDODRINE HCL 5MG TABLET PO SCH (22:35)
[2024-10-22] MEDS: DOCUSATE SODIUM 100MG CAPSULE PO PRN (00:51)
[2024-10-22 04:00] VITALS: BP 94/62; PULSE 67; RESP 18; TEMP 36.7; O2SAT 100
[2024-10-22 05:23] LABS: HEMATOCRIT. 35.7 % (42.0-52.0); HEMOGLOBIN. 12.3 g/dL (14.0-18.0); MEAN PLATELET VOLUME 8.3 fl (7.4-10.4); PLATELET 81 x1000/uL (130-400); RED BLOOD CELL COUNT 3.71 mill/uL (4.7-6.1); RED CELL DISTRIBUTION WIDTH 15.1 % (11.6-14.6)
[2024-10-22 05:33] LABS: CREATININE 1.4 mg/dL (0.6-1.3); UREA NITROGEN BLOOD 35.0 mg/dL (9-23)
[2024-10-22] MEDS: PANTOPRAZOLE 40MG DR TABLET PO SCH (07:07)
[2024-10-22 08:00] VITALS: BP 114/67; PULSE 62; RESP 18; TEMP 36.3; O2SAT 100
[2024-10-22] MEDS: MULTIVITAMINS,THER W-MINERALS TABLET PO SCH (10:00)
[2024-10-22] MEDS ORDERED: MIDO5TAB4 PO (10:25)
[2024-10-22 10:54] VITALS: BP 114/67; PULSE 62; TEMP 97.3; O2SAT 100
[2024-10-22 12:00] VITALS: BP 90/63; PULSE 66; RESP 18; TEMP 36.4; O2SAT 100
[2024-10-22 16:00] VITALS: BP 91/63; PULSE 67; RESP 18; TEMP 36.7; O2SAT 100
[2024-10-22 17:43] LABS: BAND% 2.0 % (1.0-6.0); EOSINOPHILS % MANUAL 2.0 % (0.0-5.0); LYMPHOCYTES % MANUAL 8.0 % (20.0-50.0); MONOCYTES % MANUAL 19.0 % (2.0-8.0); NEUTROPHILS % MANUAL 69.0 % (45.0-75.0); PLATELET ESTIMATE DECREASED
== END 2024-10-22 16:20 | disposition home or self-care (01) ==
LOC: ER 19:36 → EDBEDREQSVC 22:56 → EDBEDREQ 22:56 → EDBEDREQTM 22:56 → ENRESERV 23:05 → 6WST 10-20 00:44
PROVIDERS: ADMIT Hospitalist; ATTEND Hospitalist
PROC: 0W9G3ZZ Drainage of Peritoneal Cavity, Percutaneous Approach (ICD-10-PCS; principal; 2024-10-20)
DX: K74.60 Unspecified cirrhosis of liver (principal); J96.00 Acute respiratory failure, unspecified whether with hypoxia or hypercapnia; K72.90 Hepatic failure, unspecified without coma; N17.9 Acute kidney failure, unspecified; C22.9 Malignant neoplasm of liver, not specified as primary or secondary; D63.8 Anemia in other chronic diseases classified elsewhere; I95.9 Hypotension, unspecified; E87.1 Hypo-osmolality and hyponatremia; E88.09 Other disorders of plasma-protein metabolism, not elsewhere classified; K76.6 Portal hypertension; R18.8 Other ascites; K42.9 Umbilical hernia without obstruction or gangrene; B19.20 Unspecified viral hepatitis C without hepatic coma; N39.0 Urinary tract infection, site not specified; N18.9 Chronic kidney disease, unspecified; D64.89 Other specified anemias; D69.59 Other secondary thrombocytopenia; K80.20 Calculus of gallbladder without cholecystitis without obstruction; Z55.6 Problems related to health literacy; Z85.05 Personal history of malignant neoplasm of liver
CPT/HCPCS: 36415; 49083; 71045; 76705; 80048; 80053; 80061; 80076; 81003; 82040; 82140; 82607; 82746; 83540; 83550; 83615; 83880; 84155; 84439; 84443; 84484; 85025; 86850; 86900; 87077; 87186; 93005; 96374; 96375; 99285; J0692; J2003; J2270; J2405; J2470; J7060; P9047